=== PATIENT | female | born 1980 ===

== ENCOUNTER 2017-04-25 09:24 | Inpatient (IN) | payer MEDICAID ==
[2017-04-25 09:39] VITALS: BMI 58.6
[2017-04-25] MEDS ORDERED: Sodium Chloride 0.9% 500 ML IV ONE (09:43)
[2017-04-25] MEDS ORDERED: Multivitamin (MVI) 10 ML, Thiamine 100 MG, Folic Acid 1 MG in Sodium Chloride 0.9% 1,00... IV ONE (09:54)
--- NOTE | 2017-04-25 09:55 | CT ---
PROCEDURE: CT HEAD WITHOUT CONTRAST. HISTORY: code stroke COMPARISON: None available. TECHNIQUE: Axial computed tomography images were obtained through the head/brain without intravenous contrast. Radiation dose: Total exam DLP = 1520.78 mGy-cm. This CT exam was performed using one or more of the following dose reduction techniques: Automated exposure control, adjustment of the mA and/or kV according to patient size, and/or use of iterative reconstruction technique. FINDINGS: HEMORRHAGE: No acute parenchymal, subarachnoid or extra-axial hemorrhage. . BRAIN: No evidence of large acute infarct. No obvious parenchymal nor extra-axial mass or collection seen on this noncontrast study. VENTRICLES: Unremarkable. No hydrocephalus. CALVARIUM: No acute calvarial fractures. The note made of a few scattered calvarial lucencies likely representing venous lakes and vascular grooves. PARANASAL SINUSES: Mild mucosal thickening within the ethmoid and sphenoid sinuses. . MASTOID AIR CELLS: Unremarkable as visualized. No inflammatory changes. OTHER FINDINGS: None. IMPRESSION: No acute intracranial hemorrhage. Case discussed with Dr. Patel at approximately 9:52 p.m. with written down and read back verification
[2017-04-25 10:31] LABS: BASO % 0.4 % (0.0-2.0); EOS # 0.1 K/uL (0.0-0.7); EOS % 0.7 % (0.0-4.0); HEMATOCRIT 34.6 % (34.0-47.0); LYMPH # 2.5 K/uL (1.0-4.3); MEAN CELL VOLUME 78.6 fl (81.0-99.0); MEAN CORPUSCULAR HEMOGLOBIN 25.8 pg (27.0-31.0); MEAN CORPUSCULAR HGB CONC 32.8 g/dL (33.0-37.0); MEAN PLATELET VOLUME 7.8 fl (7.2-11.7); MONO # 0.5 K/uL (0.0-0.8); NEUT # 8.7 K/uL (1.8-7.0); NEUT % 73.9 % (50.0-75.0); RED CELL DISTRIBUTION WIDTH 16.3 % (11.5-14.5); WHITE BLOOD COUNT 11.7 K/uL (4.8-10.8)
[2017-04-25 10:41] LABS: ALB/GLOB RATIO 1.4 (1.0-2.1); ALCOHOL SERUM < 10 mg/dl (0-10); ALKALINE PHOSPHATASE 101 U/L (38-126); ALT/SGPT 26 U/L (9-52); AST/SGOT 22 U/L (14-36); BILIRUBIN,TOTAL 0.3 mg/dl (0.2-1.3); BLOOD UREA NITROGEN 4 mg/dl (7-17); CALCIUM 9.1 mg/dL (8.4-10.2); CARBON DIOXIDE 21 mmol/L (22-30); CHLORIDE 103 mmol/L (98-107); CHOLESTEROL 174 mg/dL (0-199); GFR AFRICAN-AMERICAN > 60; GLUCOSE,RANDOM 140 mg/dL (65-105); POTASSIUM 3.4 MMOL/L (3.6-5.0); SODIUM 138 mmol/l (132-148)
[2017-04-25 10:43] LABS: PARTIAL THROMBOPLASTIN TIME 32.9 Seconds (25.6-37.1)
--- NOTE | 2017-04-25 11:28 | RAD ---
HISTORY: code stroke COMPARISON: No prior. FINDINGS: LUNGS: Poor inspiration with low lung volumes, crowded bronchovascular markings and mild bibasilar atelectasis. PLEURA: . No significant pleural effusion identified, no pneumothorax apparent. CARDIOVASCULAR: Heart appears upper limits of normal/borderline enlarged OSSEOUS STRUCTURES: No significant abnormalities. VISUALIZED UPPER ABDOMEN: Normal. OTHER FINDINGS: None. IMPRESSION: Poor inspiration with low lung volumes, crowded bronchovascular markings and mild bibasilar atelectasis.
[2017-04-25 11:29] LABS: RBC URINE < 1 /hpf (0-3); URINE BILIRUBIN NEGATIVE (NEGATIVE); URINE BLOOD NEGATIVE (NEGATIVE); URINE COLOR COLORLESS (YELLOW); URINE GLUCOSE (UA) NEG (Normal); URINE KETONE NEGATIVE (NEGATIVE); URINE LEUKOCYTE ESTERASE NEG Leu/uL (Negative); URINE PROTEIN NEGATIVE (NEGATIVE); URINE UROBILINOGEN 0.2-1.0 mg/dL (0.2-1.0)
--- NOTE | 2017-04-25 12:19 | ED PDOC ---
HPI: Seizure Time Seen by Provider: 04/25/17 09:28 Chief Complaint (Nursing): Altered Mental Status History Per: Patient History/Exam Limitations: clinical condition Recent Seizure Activity Began: Just Before Arrival Number Of Seizures: One Length Of Seizures (Duration): Minutes (2) Quality Of Seizure: Generalized Associated Symptoms: denies: Bit Tongue, Incontinence Of Urine, Incontinence Of Stool, Injury As A Result Of Seizure Activity Severity: Moderate Additional History Per: Patient, Family Additional Complaint(s): per family pt felt weak at home had a witnessed gtc in the lobby, pt now is post ictal pe family no seizures in the past Past Medical History Reviewed: Historical Data, Nursing Documentation, Vital Signs Vital Signs: Last Vital Signs Temp 97.7 F 04/25/17 15:18 Pulse 72 04/25/17 15:18 Resp 16 04/25/17 15:18 BP 129/55 L 04/25/17 15:18 Pulse Ox 100 04/25/17 15:18 - Medical History PMH: Asthma, Depression, Diabetes, Hiatal Hernia - Family History Family History: States: Unknown Family Hx - Living Arrangements Living Arrangements: With Family - Immunization History Hx Tetanus Toxoid Vaccination: No Hx Influenza Vaccination: No Hx Pneumococcal Vaccination: No - Home Medications Home Medications: Ambulatory Orders Medication Instructions Recorded Albuterol Sulfate [Albuterol 3 ml IH Q4 PRN #0 shailesh 10/12/14 Sulfate 2.5mg/3 ml 0.083%] Albuterol 0.5% [Albuterol 0.5% 0.5 ml IH Q6 PRN #20 neb 10/30/14 Inhal Shailesh (2.5 mg/0.5 ml) UD] Albuterol Sulfate [Albuterol Hfa] 0.09 mg IH Q4 PRN #1 bottle 10/30/14 Albuterol HFA [Ventolin HFA 90 0.09 mg IH Q4 PRN #1 puff 01/25/15 mcg/actuation (8 g)] Albuterol Sulfate [Albuterol 3 ml IH Q4 #1 bot 01/25/15 Sulfate 2.5mg/3 ml 0.083%] Azithromycin 1 tab PO DAILY #6 tab 01/25/15 Mask, Face [Nebulizer Aerosol Mask 1 dev XX PRN PRN #1 dev 01/25/15 Adult] Prednisone 60 mg PO DAILY #12 tab 01/25/15 - Allergies Allergies/Adverse Reactions: Allergies Allergy/AdvReac Type Severity Reaction Status Date / Time No Known Allergies Allergy Verified 04/25/17 09:27 Review of Systems Review Of Systems: ROS cannot be obtained secondary to pt's inabilty to answer questions. Neurological: Positive for: Seizures Physical Exam - Reviewed Nursing Documentation Reviewed: Yes Vital Signs Reviewed: Yes - Physical Exam Appears: Positive for: In Acute Distress (obese) Head Exam: Positive for: ATRAUMATIC, NORMAL INSPECTION, NORMOCEPHALIC Skin: Positive for: Normal Color, Warm, Dry Eye Exam: Positive for: Normal appearance, EOMI, PERRL Neck: Positive for: Normal, Painless ROM, Supple Cardiovascular/Chest: Positive for: Regular Rate, Rhythm, Chest Non Tender. Negative for: Edema, Bradycardia, Tachycardia Respiratory: Positive for: Normal Breath Sounds. Negative for: Decreased Breath Sounds Pulses-Radial (L): 2+ Pulses-Radial (R): 2+ Gastrointestinal/Abdominal: Positive for: Normal Exam, Bowel Sounds, Soft. Negative for: Tenderness Back: Positive for: Normal Inspection. Negative for: L CVA Tenderness, R CVA Tenderness Extremity: Positive for: Normal ROM. Negative for: Tenderness, Pedal Edema, Deformity Neurologic/Psych: Positive for: Other (obtunded, respone to sternal rub moves all fours, neg babinski). Negative for: Alert, Oriented - Laboratory Results Result Diagrams: 04/25/17 10:15 04/25/17 09:40 - ECG ECG: Positive for: Interpreted By Nc ECG Rhythm: Positive for: Normal QRS, Normal ST Segment, Sinus Rhythm. Negative for: ST/T Changes Interpretation Of Abn EKG: no evidence of ischemia O2 Sat by Pulse Oximetry: 100 Pulse Ox Interpretation: Normal - Radiology X-Ray: Interpreted by Nc X-Ray Interpretation: No Acute Disease - Progress ED Course And Treament: pt moves all fours nml cn no dysarthria complaining of treadwell and stomach pain. no apparent focal neuro deficitper neuro pt not a tpa candidate due to new onset seizure 3pm will admit to tele per Dr bonner. no focal deficit ct scan unremakrable. Re-evaluation Time: 12:21 Condition: Improved Disposition - Clinical Impression Clinical Impression: Seizure, Altered mental status - Patient ED Disposition Is Patient to be Admitted: Yes Counseled Patient/Family Regarding: Studies Performed, Diagnosis, Need For Followup - Disposition Disposition Time: 15:00 Condition: STABLE - Pt Status Changed To: Hospital Disposition Of: Inpatient - Admit Certification Admit to Inpatient:: After my assessment, the patient will require hospitalization for at least two midnights. This is because of the severity of symptoms shown, intensity of services needed, and/or the medical risk in this patient being treated as an outpatient.
--- NOTE | 2017-04-25 13:52 | CARD ---
APPROVED REPORT EKG Measurement Heart [id number] <Conclusion> Normal sinus rhythm Normal ECG
--- NOTE | 2017-04-25 15:11 | CT ---
PROCEDURE: CT Angiography of the neck and brain dated 04/25/2017 HISTORY: treadwell r/o aneurysm COMPARISON: None available. TECHNIQUE: Contiguous axial images of the neck were obtained from the level of the skull-base to the superior mediastinum in the arteriographic phase of enhancement. Coronal and sagittal reformats or also generated. IV contrast dose: 90 cc Visipaque 320 Radiation Dose - DLP: 3033.09 mGy-cm This CT exam was performed using one or more of the following dose reduction techniques: Automated exposure control, adjustment of the mA and/or kV according to patient size, and/or use of iterative reconstruction technique. FINDINGS: RIGHT CAROTID ARTERIES: Common Carotid Artery: Normal. Carotid Bifurcation: Normal. Internal Carotid Artery:Normal. External Carotid Artery (proximal branches): Normal. LEFT CAROTID ARTERIES: Common Carotid Artery: Normal. Carotid Bifurcation: Normal. Internal Carotid Artery:Normal. External Carotid Artery (proximal branches): Normal. VERTEBRAL ARTERIES: Right Vertebral Artery: Normal. Left Vertebral Artery: Normal. OTHER FINDINGS: Mild mucosal thickening seen within the ethmoid air complex and sphenoid sinus. IMPRESSION: Normal CT Angiography of the neck and brain. No evidence of large aneurysm nor vascular malformation. .
--- NOTE | 2017-04-25 15:32 | CT ---
PROCEDURE: CT abdomen pelvis dated 04/25/2017 HISTORY: Left lower quadrant abdominal pain COMPARISON: No prior. TECHNIQUE: Contiguous axial images of the abdomen and pelvis. Oral contrast was administered. No IV contrast given. Coronal and Sagittal reformats generated. Radiation dose: Total exam DLP = 1686.22 mGy-cm. This CT exam was performed using one or more of the following dose reduction techniques: Automated exposure control, adjustment of the mA and/or kV according to patient size, and/or use of iterative reconstruction technique. Contrast dose: 36 cc Visipaque 320 contrast material. FINDINGS: Lung bases are clear. No infiltrate effusion or basilar pneumothorax. LOWER THORAX: Mild atelectatic changes seen within the posterior lower lung zones. No effusion or basilar pneumothorax. Tiny hiatal hernia. Heart size is upper limits of normal/ borderline enlarged. LIVER: The liver is enlarged measuring nearly 21 cm in CC dimension. No obvious hepatic mass collection or calcification. GALLBLADDER AND BILE DUCTS: Gallbladder is physiologically distended. No evidence of intraluminal gallbladder calculi. PANCREAS: Visualized portions the pancreas appear grossly unremarkable. SPLEEN: Spleen exhibits normal size and attenuation pattern without mass collection or calcification. ADRENALS: No adrenal lesions. KIDNEYS AND URETERS: Kidneys demonstrate symmetric nephrograms. No evidence of nephrolithiasis or hydronephrosis. BLADDER: The urinary bladder is physiologically distended. No evidence of intraluminal urinary bladder calculi. The REPRODUCTIVE: The uterus and adnexal structures appear grossly unremarkable. APPENDIX: What is felt to represent partially visualized normal appendix best seen on coronal sequence image number [id number]. No evidence of surrounding inflammation. BOWEL: Evaluation of the bowel is limited due to the lack of oral contrast. Stomach is under opacified and incompletely distended which presumably accounts for thick-walled appearance. Gastritis not excluded. Visualized loops of small bowel exhibit normal contour and caliber. No evidence of acute mechanical small bowel obstruction. Moderate amount of stool seen throughout the colon consistent with mild fecal retention/constipation. PERITONEUM: Unremarkable. No fluid collection. No free air. Localized dehiscence mid anterior abdominal wall associated with small -medium-sized fat containing umbilical hernia. . There is a 2nd small to medium-sized right parasagittal mid and right parasagittal lower abdominal ventral wall hernia at the level of the pelvis. LYMPH NODES: Unremarkable. No enlarged lymph nodes. VASCULATURE: Unremarkable. No aortic aneurysm. BONES: Minor multilevel degenerative spondylosis of the lower thoracic and lumbar spine. OTHER FINDINGS: None. IMPRESSION: Heart is upper limits of normal/ borderline enlarged Hepatomegaly. Multiple the small to medium-sized mesenteric lymph nodes. Rule out mesenteric adenitis Findings consistent with constipation Anterior abdominal wall hernias as above.
[2017-04-25] MEDS ORDERED: Albuterol HFA 90 mcg/actuation (8 g) IH PRN (22:02)
[2017-04-25] MEDS: levETIRAcetam 500 MG in Sodium Chloride 0.9% 100 ML IVPB SCH (22:30)
[2017-04-26] MEDS ORDERED: Albuterol HFA 90 mcg/actuation (8 g) INH PRN (01:44)
[2017-04-26] MEDS: levETIRAcetam 500 MG in Sodium Chloride 0.9% 100 ML IVPB SCH (08:32)
[2017-04-26] MEDS: Enoxaparin 40 mg Syringe SC SCH (08:38)
[2017-04-26 10:34] LABS: THYROID STIMULATING HORMONE 0.92 mIU/ML (0.46-4.68)
[2017-04-26] MEDS ORDERED: Magnesium Sulfate 2 gm/50 ml 2 GM/50 ML BAG IVPB ONE (12:52)
[2017-04-26] MEDS ORDERED: Dexamethasone 10 MG in Sodium Chloride 0.9% 50 ML IV ONE (12:57)
--- NOTE | 2017-04-26 16:23 | CP.PCM.CON ---
History of Present Illness - History of Present Illness History of Present Illness: Ms. Mccormick is a 37-year-old woman who was found to have a generalized tonic clonic seizure with tongue biting, urinary and fecal incontinence. She is not back to baseline, was given Keppra, but continues to complain of a headache. CT scan of the head was unremarkable. Urine toxicology was positive for cocaine. Review of Systems - Review of Systems All systems: reviewed and no additional remarkable complaints except Past Patient History - Past Medical History & Family History Past Medical History?: Yes - Past Social History Smoking Status: Heavy Smoker > 10 Cigarettes Daily - CARDIAC Hx Cardiac Disorders: No - PULMONARY Hx Respiratory Disorders: Yes (asthma) Hx Asthma: Yes - NEUROLOGICAL Hx Neurological Disorder: No - HEENT Hx HEENT Problems: No - RENAL Hx Chronic Kidney Disease: No - ENDOCRINE/METABOLIC Hx Endocrine Disorders: No - HEMATOLOGICAL/ONCOLOGICAL Hx Blood Disorders: No Hx AIDS: No Hx Human Immunodeficiency Virus (HIV): No - INTEGUMENTARY Hx Dermatological Problems: No - MUSCULOSKELETAL/RHEUMATOLOGICAL Hx Musculoskeletal Disorders: No Hx Falls: No - GENITOURINARY/GYNECOLOGICAL Hx Genitourinary Disorders: No - PSYCHIATRIC Hx Psychophysiologic Disorder: Yes (depression) Hx Depression: Yes Hx Substance Use: No - SURGICAL HISTORY Hx Section: Yes (x1) Hx Herniorrhaphy: Yes - ANESTHESIA Hx Anesthesia: Yes Hx Anesthesia Reactions: No Hx Malignant Hyperthermia: No Has any member of the family had a problem w/ anesthesia?: No Meds Allergies/Adverse Reactions: Allergies Allergy/AdvReac Type Severity Reaction Status Date / Time No Known Allergies Allergy Verified 04/25/17 09:27 - Medications Medications: Current Medications Acetaminophen (Tylenol 325mg Tab) 650 mg PO Q6 PRN PRN Reason: Pain, moderate (4-7) Last Admin: 04/25/17 22:24 Dose: 650 mg Albuterol (Ventolin Hfa 90 Mcg/Actuation (8 G)) 2 puff INH RQ4 PRN PRN Reason: Shortness of Breath Last Admin: 04/26/17 08:40 Dose: 2 puff Enoxaparin Sodium (Lovenox) 40 mg SC DAILY BETTINA PRN Reason: Protocol Last Admin: 04/26/17 08:38 Dose: 40 mg Physical Exam - Constitutional Appears: Well - Head Exam Head Exam: ATRAUMATIC, NORMAL INSPECTION, NORMOCEPHALIC - Eye Exam Eye Exam: EOMI, Normal appearance, PERRL - ENT Exam ENT Exam: Mucous Membranes Moist, Normal Exam - Neck Exam Neck exam: Positive for: Normal Inspection - Respiratory Exam Respiratory Exam: Clear to Auscultation Bilateral, NORMAL BREATHING PATTERN - GI/Abdominal Exam GI & Abdominal Exam: Distended, Hernia, Normal Bowel Sounds, Soft, Tenderness - Rectal Exam Rectal Exam: Deferred - Neurological Exam Neurological exam: Alert, CN II-XII Intact, Normal Gait, Oriented x3, Reflexes Normal - Expanded Neurological Exam Expanded Patient oriented to: person, place, time Cranial nerves: EOM's Intact: Normal, Facial Sensation: Normal, Gag Reflex: Normal Cerebellar Function: Finger to Nose: Normal Upper motor neuron: Babinski Sign: Normal Sensory exam: Lower Extremity 2 Point Discrimination: Normal, Lower Extremity Light Touch: Normal, Lower Extremity Pin Prick: Normal, Lower Extremity Temperature: Normal, Upper Extremity 2 Point Discrimination: Normal, Upper Extremity Light Touch: Normal, Upper Extremity Pin Prick: Normal, Upper Extremity Temperature: Normal Neuro motor strength exam: Left Upper Extremity: 5, Right Upper Extremity: 5, Left Lower Extremity: 5, Right Lower Extremity: 5 DTR: Achilles Tendon Left: 2+, Achilles Tendon Right: 2+, Bicep Left: 2+, Bicep Right: 2+, Brachioradialis Left: 2+, Brachioradialis Right: 2+, Patellar Left: 2 +, Patellar Right: 2+, Tricep Left: 2+, Tricep Right: 2+ - Psychiatric Exam Psychiatric exam: Normal Affect, Normal Mood - Skin Skin Exam: Dry, Intact, Normal Color, Warm Results - Vital Signs Recent Vital Signs: Last Vital Signs Temp 98.3 F 04/26/17 15:33 Pulse 52 L 04/26/17 15:33 Resp 18 04/26/17 15:33 BP 141/80 04/26/17 15:33 Pulse Ox 99 04/26/17 15:33 - Labs Result Diagrams: 04/25/17 10:15 04/25/17 09:40 Labs: Laboratory Results - last 24 hr 04/26/17 08:10 Vitamin B12 254 TSH 3rd Generation 0.92 Assessment & Plan (1) Seizure Assessment and Plan: Likely due to cocaine abuse. The patient should be counseled by psych and oncology social work. Anti-epileptic is not indicated at this time since this is a first time seizure and likely due to drug toxicity. I recommend MRI of the brain with and without contrast as well as a routine EEG. Decadron 10 mg IV and Magnesium sulfate 2 grams IV may help her headache. Thank you. Status: Acute Priority: High
--- NOTE | 2017-04-26 21:55 | HP ---
CHIEF COMPLAINT: Seizures. HISTORY OF PRESENT ILLNESS: This is a 37-year-old female who was found with altered mental status at home and, according to family, she was having generalized tonic-clonic seizures at home so the patie nt was brought to Emergency Room and was admitted for further management. The patient denies any suc h episodes in the past. REVIEW OF SYSTEMS: Positive for seizures. Review of system otherwise is negative for headache, dizz iness, syncope, loss of consciousness, chest pain, shortness of breath, nausea, vomiting, diarrhea, c onstipation, incontinence of urine or stool or tongue bite or any injury. Review of systems of all ot her organ systems is unremarkable. PAST MEDICAL HISTORY: Significant for obesity, diabetes, depression and asthma. PAST SURGICAL HISTORY: Unremarkable. FAMILY HISTORY: Noncontributory. MEDICATIONS: The patient is on multiple medications, which is as per reconciliation sheet, which was reviewed in order. ALLERGIES: The patient is not allergic to any medication. PHYSICAL EXAMINATION: GENERAL: Well-built, well-nourished, morbidly obese 37-year-old female in no acute distress. VITAL SIGNS: Temperature 98.2, pulse 84, respirations 18, blood pressure 119/67, saturation 99%. HEENT: Pupils reacting to light. No JVD, no thyromegaly, no lymphadenopathy, no nystagmus. Normocep halic, atraumatic skull. HEART: S1, S2 normal, regular. No significant murmur, gallop or rub is heard. LUNGS: Shows good bilateral air entry. No rales or rhonchi. ABDOMEN: Soft, nontender, no organomegaly, no fluid. Bowel sounds are plus. EXTREMITIES: No edema, no calf swelling, no tenderness, no acute ischemia. CENTRAL NERVOUS SYSTEM: Essentially unchanged. DIAGNOSTIC DATA: Available diagnostic data reviewed. Toxicology is positive for cocaine. Urinalysi s is otherwise clear. Vitamin B12 level is 254. TSH less is . WBC 11.7, hemoglobin 11.4, juliet tocrit 34.6, platelets 399. Sodium 138, potassium 3.4, chloride 103, bicarbonate 21, BUN 4, creatini ne 0.5. SMA-12 is unremarkable. test is negative. ADMITTING IMPRESSION: New onset of seizures, cocaine abuse, morbid obesity, vitamin B12 deficiency, history of diabetes, asthma, morbid obesity, depression. PLAN: As ordered. Case and plan discussed with patient. Michael Lenz MD cc: [id number] TT: 04/26/2017 21:54:46 ln
[2017-04-27 05:10] LABS: HEMATOCRIT 33.7 % (34.0-47.0); MEAN CELL VOLUME 79.6 fl (81.0-99.0); MEAN CORPUSCULAR HEMOGLOBIN 25.7 pg (27.0-31.0); MEAN CORPUSCULAR HGB CONC 32.4 g/dL (33.0-37.0); WHITE BLOOD COUNT 14.5 K/uL (4.8-10.8)
[2017-04-27 05:23] LABS: ALB/GLOB RATIO 1.3 (1.0-2.1); ALKALINE PHOSPHATASE 87 U/L (38-126); ALT/SGPT 34 U/L (9-52); AST/SGOT 18 U/L (14-36); BILIRUBIN,TOTAL 0.2 mg/dl (0.2-1.3); BLOOD UREA NITROGEN 11 mg/dl (7-17); CALCIUM 9.1 mg/dL (8.4-10.2); CARBON DIOXIDE 24 mmol/L (22-30); CHLORIDE 105 mmol/L (98-107); GFR AFRICAN-AMERICAN > 60; GLUCOSE,RANDOM 127 mg/dL (65-105); POTASSIUM 4.2 MMOL/L (3.6-5.0); SODIUM 137 mmol/l (132-148); TOTAL PROTEIN 7.3 G/DL (6.3-8.2)
[2017-04-27] MEDS ORDERED: Dexamethasone 10 MG in Sodium Chloride 0.9% 50 ML IVPB SCH (09:00)
--- NOTE | 2017-04-27 09:03 | PN ---
DATE: 04/27/2017 The patient seen and examined. Interim events noted. Consults noted, appreciated. Neurology consul t and intervention noted and appreciated. The patient remains in progressive care unit on telemetry monitoring. The patient feels okay. Denies any specific complaint. No dizziness, no loss of consci ousness, no seizure activity. PHYSICAL EXAMINATION: GENERAL: The patient is in no acute distress. VITAL SIGNS: Stable. HEART: S1, S2 normal, regular. LUNGS: Good bilateral air entry. ABDOMEN: Soft, nontender. EXTREMITIES: No edema, no calf swelling, no tenderness, no acute ischemia. CENTRAL NERVOUS SYSTEM: Essentially unchanged. DIAGNOSTIC DATA: Available reviewed. Overall, patient's general medical condition is stable. The patient was counseled about . Michael Lenz MD cc: [id number] TT: 04/27/2017 09:02:28 Confirmation # [id number] Dictation # [id number]
[2017-04-27] MEDS: Enoxaparin 40 mg Syringe SC SCH (09:38)
--- NOTE | 2017-04-27 14:21 | PQF GENQUE ---
Dr. Lenz, In agreement with the BMI:48.8 listed in the EMR? OR: Other explanation of clinical findings OR: Unable to determine H and P: diagnoses include Morbid Obesity This form is a permanent part of the medical record Clarification of your documentation is requested to better reflect the severity of illness and intensity of treatment of your patient. Indicators present [] Specify: [] [] Specify: [] [] Specify: [] [] Specify: [] Location in the medical record that reflects the above clinical findings: [] Treatment Provided: [] PHYSICIAN'S RESPONSE Based on your medical judgment of the clinical indicators outlined above please clarify the following: [] Practitioner response [] If unable to determine, please check the box, sign and date. Present On Admission (POA) Indicator: [] Present at the time of admission [] Not present at the time of admission [] Clinically Undetermined In responding to this query, please exercise your independent professional judgment. The fact that a question is asked does not imply that any particular answer is desired or expected. Thank you for your clarification on this documentation. If you have any questions please call. * Thank you, Roro Izaguirre RN BSN ext. #[phone] MTDD
[2017-04-27] MEDS ORDERED: Magnesium Hydroxide Susp 30 ml UD PO ONE (19:30)
[2017-04-28] MEDS: Enoxaparin 40 mg Syringe SC SCH (08:47)
--- NOTE | 2017-04-28 11:47 | MRI ---
PROCEDURE: MRI BRAIN WITH AND WITHOUT CONTRAST HISTORY: seizure disorder COMPARISON: Comparison made with prior CT scan brain CT/ TECHNIQUE: Multiplanar, multisequence MR images of the brain were obtained before and following intravenous injection of 24 cc Omniscan contrast material. FINDINGS: HEMORRHAGE: No acute parenchymal, subarachnoid or extra-axial hemorrhage. No evidence of hemosiderin deposition seen on gradient echo weighted sequence. DWI: No evidence of an acute or early subacute infarction seen on diffusion imaging. . BRAIN PARENCHYMA: There are no focal areas of abnormal signal seen within the substance of the brain. No evidence to suggest mesial temporal sclerosis. Ventricular and sulcal size are normal. Partially empty sella. ENHANCEMENT: There are no parenchymal nor extra-axial masses or collections on. No evidence of unusual meningeal enhancement. VENTRICLES: No evidence of obstructive hydrocephalus. . There appears to be collapsed aeration of the right frontal horn CRANIUM: No gross calvarial abnormalities ORBITS: Orbits and contents grossly unremarkable. PARANASAL SINUSES/MASTOIDS: Clear VASCULAR SYSTEM: Visualized major vascular flow voids at skull base are patent. OTHER FINDINGS: None . IMPRESSION: No acute intracranial abnormalities. No enhancing lesions. No evidence to suggest mesial temporal sclerosis.
[2017-04-28 12:11] VITALS: BP 110/68; PULSE 58; RESP 20; TEMP 98.8; O2SAT 99
--- NOTE | 2017-04-28 15:29 | CP.PCM.PN ---
Subjective - Date & Time of Evaluation Date of Evaluation: 04/28/17 - Subjective Subjective: The patient seen and examined. Interim events noted. Consults noted, appreciated. Neurology consult and intervention noted and appreciated. The patient remains in progressive care unit on telemetry monitoring. The patient feels okay. Denies any specific complaint. No dizziness, no loss of consciousness, no seizure activity. PHYSICAL EXAMINATION: GENERAL: The patient is in no acute distress. VITAL SIGNS: Stable. HEART: S1, S2 normal, regular. LUNGS: Good bilateral air entry. ABDOMEN: Soft, nontender. EXTREMITIES: No edema, no calf swelling, no tenderness, no acute ischemia. CENTRAL NERVOUS SYSTEM: Essentially unchanged. Overall, patient's general medical condition is stable. The patient was counseled about drug abuse and follow up. Pt is medically stable, for possible d/c today. D/C plan d/w pt. Objective - Vital Signs/Intake and Output Vital Signs (last 24 hours): Temp Pulse Resp BP Pulse Ox 98.8 F 58 L 20 110/68 99 04/28/17 12:10 04/28/17 12:10 04/28/17 12:10 04/28/17 12:10 04/28/17 12:10 - Labs Labs: 04/27/17 04:10 04/27/17 04:10 PT 13.0 Seconds (9.8-13.1) 04/25/17 09:30 INR 1.2 (0.9-1.2) 04/25/17 09:30 APTT 32.9 Seconds (25.6-37.1) 04/25/17 09:30
== END 2017-04-28 14:00 | disposition home or self-care (01) | DRG 889 ==
LOC: H.ER 09:24 → H.ERHOLD 15:58 → H.TEL 19:53
PROVIDERS: ADMIT Internal Medicine; ATTEND Internal Medicine
DX: G40.89 Other seizures (principal); E53.8 Deficiency of other specified B group vitamins; Z68.42 Body mass index [BMI] 45.0-49.9, adult; F14.10 Cocaine abuse, uncomplicated; E66.01 Morbid (severe) obesity due to excess calories; E11.9 Type 2 diabetes mellitus without complications; J45.909 Unspecified asthma, uncomplicated; F17.210 Nicotine dependence, cigarettes, uncomplicated; F32.9 Major depressive disorder, single episode, unspecified; K44.9 Diaphragmatic hernia without obstruction or gangrene

== ENCOUNTER 2017-10-20 09:49 | Emergency (ER) | payer MEDICAID ==
[2017-10-20 09:56] VITALS: BP 135/75; PULSE 77; RESP 17; TEMP 98.3; O2SAT 99; BMI 49.6
[2017-10-20] MEDS ORDERED: Sodium Chloride 0.9% 1,000 ML IV STA (10:43)
[2017-10-20] MEDS ORDERED: Iohexol 240 (50 ml) PO STA (10:44)
--- NOTE | 2017-10-20 10:54 | ED PDOC ---
HPI: Abdomen Time Seen by Provider: 10/20/17 10:45 Chief Complaint (Nursing): Abdominal Pain Chief Complaint (Provider): Right, central abdominal pain History Per: Patient History/Exam Limitations: no limitations Onset/Duration Of Symptoms: Other (4 years) Outside of [place] travel?: No Current Symptoms Are (Timing): Still Present Location Of Pain/Discomfort: Other (Central, right ) Quality Of Discomfort: Sharp Additional Complaint(s): PT states she has had a hernia for 4 years and has not been able to follow-up surgeon. Pt states the pain was worse yesterday night and today so she came to the ER for evaluation. No N/V/D. Past Medical History Reviewed: Historical Data, Nursing Documentation, Vital Signs Vital Signs: Last Vital Signs Temp 98.3 F 10/20/17 09:56 Pulse 77 10/20/17 09:56 Resp 17 10/20/17 09:56 BP 135/75 10/20/17 09:56 Pulse Ox 99 10/20/17 11:01 - Medical History PMH: Asthma, Depression, Diabetes, Hiatal Hernia Denies: HIV, Chronic Kidney Disease - Surgical History Surgical History: No Surg Hx - Family History Family History: States: Unknown Family Hx - Living Arrangements Living Arrangements: With Family - Social History Current smoker - smoking cessation education provided: No - Immunization History Hx Tetanus Toxoid Vaccination: No Hx Influenza Vaccination: No Hx Pneumococcal Vaccination: No - Home Medications Home Medications: Ambulatory Orders Medication Instructions Recorded Albuterol HFA [Ventolin HFA 90 0.09 mg IH Q4 PRN #1 puff 01/25/15 mcg/actuation (8 g)] - Allergies Allergies/Adverse Reactions: Allergies Allergy/AdvReac Type Severity Reaction Status Date / Time No Known Allergies Allergy Verified 10/20/17 09:58 Review of Systems ROS Statement: Except As Marked, All Systems Reviewed And Found Negative Gastrointestinal: Positive for: Abdominal Pain. Negative for: Nausea, Vomiting , Diarrhea Physical Exam - Reviewed Nursing Documentation Reviewed: Yes Vital Signs Reviewed: Yes - Physical Exam Appears: Positive for: Well, Non-toxic, No Acute Distress Head Exam: Positive for: ATRAUMATIC, NORMAL INSPECTION, NORMOCEPHALIC Skin: Positive for: Normal Color, Warm, DRY Eye Exam: Positive for: Normal appearance ENT: Positive for: Normal ENT Inspection Neck: Positive for: Normal, Painless ROM Cardiovascular/Chest: Positive for: Regular Rate, Rhythm Respiratory: Positive for: Normal Breath Sounds. Negative for: Accessory Muscle Use, Respiratory Distress Gastrointestinal/Abdominal: Positive for: Normal Exam, Bowel Sounds, Soft. Negative for: Tenderness Back: Positive for: Normal Inspection Extremity: Positive for: Normal ROM Neurologic/Psych: Positive for: Alert, Oriented - Laboratory Results Result Diagrams: 10/20/17 11:45 10/20/17 12:35 - ECG O2 Sat by Pulse Oximetry: 99 Medical Decision Making Medical Decision Making: Fat containing hernia. Disposition - Clinical Impression Clinical Impression: Abdominal hernia - Patient ED Disposition Is Patient to be Admitted: No Counseled Patient/Family Regarding: Diagnosis, Need For Followup - Disposition Referrals: Diego Duran MD [Staff Provider] - [facility] [Outside] Disposition: Routine/Home Disposition Time: 15:05 Condition: GOOD Additional Instructions: Motrin as needed for pain. Please follow-up with surgeon. Instructions: Ventral Hernia (ED) Forms: [facility] (Sinhala) Print Language: SINHALA
[2017-10-20] MEDS ORDERED: Iohexol 240 (50 ml) ONE (11:10)
[2017-10-20 11:48] LABS: BASO # 0.1 K/uL (0.0-0.2); BASO % 0.7 % (0.0-2.0); EOS # 0.3 K/uL (0.0-0.7); EOS % 3.3 % (0.0-4.0); LYMPH % 36.3 % (20.0-40.0); MEAN CELL VOLUME 81.5 fl (81.0-99.0); MEAN CORPUSCULAR HEMOGLOBIN 26.1 pg (27.0-31.0); MEAN PLATELET VOLUME 7.3 fl (7.2-11.7); MONO # 0.5 K/uL (0.0-0.8); MONO % 5.5 % (0.0-10.0); NEUT # 4.5 K/uL (1.8-7.0); NEUT % 54.2 % (50.0-75.0); NRBC % 0.1 % (0.0-0.0); RED CELL DISTRIBUTION WIDTH 17.7 % (11.5-14.5); WHITE BLOOD COUNT 8.4 K/uL (4.8-10.8)
[2017-10-20 12:03] LABS: PARTIAL THROMBOPLASTIN TIME 33.1 Seconds (25.6-37.1)
[2017-10-20 12:19] LABS: ALB/GLOB RATIO 1.3 (1.0-2.1); ALT/SGPT 33 U/L (9-52); BILIRUBIN,TOTAL 0.3 mg/dl (0.2-1.3); BLOOD UREA NITROGEN 9 mg/dl (7-17); CHLORIDE 107 mmol/L (98-107); GLUCOSE,RANDOM 96 mg/dL (65-105); TOTAL PROTEIN 7.3 G/DL (6.3-8.2)
[2017-10-20 12:48] LABS: ALKALINE PHOSPHATASE 101 U/L (38-126); AST/SGOT 36 U/L (14-36); CALCIUM 9.1 mg/dL (8.4-10.2); CARBON DIOXIDE 24 mmol/L (22-30); POTASSIUM 4.1 MMOL/L (3.6-5.0); SODIUM 140 mmol/l (132-148)
[2017-10-20 13:28] LABS: GFR AFRICAN-AMERICAN > 60
[2017-10-20] MEDS ORDERED: Iohexol 300 100 ML IJ ONE (13:43)
--- NOTE | 2017-10-20 14:55 | CT ---
PROCEDURE: CT Abdomen and Pelvis with contrast HISTORY: Abdominal pain, hernia with worsening pain COMPARISON: 04/25/2017. TECHNIQUE: CT scan of the abdomen and pelvis was performed after intravenous administration of contrast. Oral contrast was administered. Coronal and sagittal reformatted images were obtained. Contrast dose: 95 cc Omnipaque 300 Radiation dose: Total exam DLP = 1033.26 mGy-cm. This CT exam was performed using one or more of the following dose reduction techniques: Automated exposure control, adjustment of the mA and/or kV according to patient size, and/or use of iterative reconstruction technique. FINDINGS: LOWER THORAX: The lung bases are clear. There is linear atelectasis/scarring in the lingula. LIVER: There is moderate hepatomegaly. No gross lesion or ductal dilatation. GALLBLADDER AND BILE DUCTS: No calcified gallstones. PANCREAS: Normal in size with homogeneous enhancement. No gross lesion or ductal dilatation. SPLEEN: Normal in size and appearance. ADRENALS: No discrete nodule. KIDNEYS AND URETERS: Normal in size with homogeneous enhancement. No hydronephrosis. No solid mass. VASCULATURE: No aortic aneurysm. BOWEL: The small bowel loops are normal in caliber. There is moderate amount of stool in the colon. No bowel dilatation or obstruction. APPENDIX: Normal appendix. PERITONEUM: Unremarkable. No free fluid. No free air. LYMPH NODES: Unremarkable. No enlarged lymph nodes. BLADDER: Normal in appearance. REPRODUCTIVE: Unremarkable. BONES: No acute fracture. Within normal limits for the patient's age. OTHER FINDINGS: Again seen is a small fat containing umbilical hernia. There is also a right paramedian infraumbilical ventral hernia containing fat. IMPRESSION: No acute abdominal or pelvic abnormality. Moderate hepatomegaly. Redemonstration of fat containing umbilical hernia and right fat containing paramedian ventral hernia. No evidence of herniation of bowel lobes or incarceration.
== END 2017-10-20 15:15 | disposition home or self-care (01) ==
LOC: H.ER 09:49
DX: K43.9 Ventral hernia without obstruction or gangrene (principal); E11.9 Type 2 diabetes mellitus without complications; F32.9 Major depressive disorder, single episode, unspecified; J45.909 Unspecified asthma, uncomplicated
CPT/HCPCS: 74177; 80053; 81025; 85025; 85610; 85730; 96360; 99283; J7040; Q9966; Q9967